=== PATIENT | male | born 1955 | race Caucasian/White ===

== ENCOUNTER 2016-10-29 22:06 | Emergency (ER) | payer MEDICARE, OTHER ==
[2016-10-29 22:32] LABS: Hematocrit 48 % (42-52); Hemoglobin 15.5 g/dl (14.0-18.0); Mean Corpuscular HGB Conc 32 g/dl (31-36); Mean Corpuscular Hemoglobin 28 pg (27-31); Mean Corpuscular Volume 87 fL (80-94); Mean Platelet Volume 9 um3 (7.4-10.4); Red Blood Count 5.55 10^6/ul (4.0-5.4); Red Cell Distribution Width 16 % (10.5-15); White Blood Count 7.6 10^3/ul (3.5-10.8)
[2016-10-29 22:49] LABS: BUN/Creatinine Ratio 18.6 (8-20); Calcium 9.4 mg/dL (8.6-10.3); EGFR African American 40.4 (>60); EGFR Non-African American 31.4 (>60); Potassium 5.9 mmol/L (3.5-5.0); Total Bilirubin 0.3 mg/dL (0.2-1.0)
[2016-10-29] MEDS ORDERED: Sodium Polystyrene ORAL.SOL* 15 GM/60 ML BTL PO ONE (23:46)
[2016-10-29] MEDS ORDERED: Albuterol/Ipratropium NEB.SOL* Albuterol 2.5 MG/Ipratropium 0.5 MG 3 ML INH ONE (23:47)
[2016-10-29] MEDS ORDERED: Dextrose 50% Syringe 50 ML* 25 GM/50 ML SYRINGE IV PUSH ONE (23:50)
[2016-10-29] MEDS ORDERED: Insulin REGULAR(*) 1 UNITS UNIT IV PUSH ONE (23:51)
[2016-10-29] MEDS ORDERED: NS 0.9% 1000 ML* 1,000 ML IV ONE (23:54)
[2016-10-30 02:32] LABS: BUN/Creatinine Ratio 18.8 (8-20); Calcium 9.1 mg/dL (8.6-10.3); EGFR African American 42.2 (>60); EGFR Non-African American 32.8 (>60); Potassium 4.9 mmol/L (3.5-5.0)
[2016-10-30] MEDS ORDERED: Dextrose 50% Syringe 50 ML* 25 GM/50 ML SYRINGE IV PUSH ONE (02:37)
[2016-10-30 02:41] VITALS: BP 125/75
--- NOTE | 2016-10-30 03:01 | ED ---
Mira Perkins Rebecca, scribed for Kiersten Atkins MD on 10/29/16 at 2250 . Complex/Multi-Sys Presentation - HPI Summary HPI Summary: Pt is a 61 y/o M who presents to ED referred from his PCP today for elevated potassium. Pt reports he has no complaints at this time and denies any palpitations. PMHx COPD. Uses O2 per Os at home (2L at night). - History Of Current Complaint Chief Complaint: EDGeneral Time Seen by Provider: 10/29/16 22:47 Hx Obtained From: Patient Onset/Duration: Still Present Location: Negative Associated Signs And Symptoms: Positive: Other - Elevated potassium. Negative: Palpitations - Allergies/Home Medications Allergies/Adverse Reactions: Allergies Allergy/AdvReac Type Severity Reaction Status Date / Time No Known Allergies Allergy Verified 10/29/16 22:09 PMH/Surg Hx/FS Hx/Imm Hx Endocrine/Hematology History: Reports: Hx Diabetes Cardiovascular History: Denies: Hx Myocardial Infarction Respiratory History: Reports: Hx Chronic Obstructive Pulmonary Disease (COPD) Infectious Disease History: No Infectious Disease History: Denies: Traveled Outside the [place] in Last 30 Days - Family History Known Family History: Positive: Diabetes - Social History Alcohol Use: Rare Substance Use Type: Reports: None Smoking Status (MU): Former Smoker Review of Systems Positive: Other - Elevated potassium Negative: Palpitations All Other Systems Reviewed And Are Negative: Yes Physical Exam - Summary Physical Exam Summary: General: Well appearing, no pain distress Skin: Warm, Skin Color Reflects Adequate Perfusion, Dry Eyes: EOMI, ISABEL ENT: Pharynx normal, TMs normal Neck: Supple, nontender Respiratory: CTA, breath sounds present, no rhonchi, no wheezes, no rales Cardiovascular: RRR, no murmur, no rub, no gallop Abdomen: Soft, nontender, Non-distended, no guarding, no rebound Bowel: Present Musculoskeletal: RAULITO, No edema Neuro: Sensory/motor intact, A&Ox3, CN intact 2-12 Psych: Affect/mood appropriate Triage Information Reviewed: Yes Vital Signs On Initial Exam: Initial Vitals Temp Pulse Resp BP Pulse Ox 97.8 F 101 20 158/98 93 10/29/16 22:09 10/29/16 22:09 10/29/16 22:09 10/29/16 22:10/29/16 22:09 Vital Signs Reviewed: Yes - Seth Coma Scale Coma Scale Total: 15 Diagnostics - Vital Signs Vital Signs Temp Pulse Resp BP Pulse Ox 10/29/16 22:09 97.8 F 101 20 158/98 93 - Laboratory Lab Results: Lab Results 10/29/16 10/29/16 Range/Units 22:24 22:24 WBC 7.6 (3.5-10.8) 10^3/ul RBC 5.55 H (4.0-5.4) 10^6/ul Hgb 15.5 (14.0-18.0) g/dl Hct 48 (42-52) % MCV 87 (80-94) fL MCH 28 (27-31) pg MCHC 32 (31-36) g/dl RDW 16 H (10.5-15) % Plt Count 176 (150-450) 10^3/ul MPV 9 (7.4-10.4) um3 Neut % (Auto) 58.9 (38-83) % Lymph % (Auto) 26.9 (25-47) % Bowman % (Auto) 10.1 H (1-9) % Eos % (Auto) 3.2 (0-6) % Baso % (Auto) 0.9 (0-2) % Absolute Neuts (auto) 4.5 (1.5-7.7) 10^3/ul Absolute Lymphs (auto) 2.0 (1.0-4.8) 10^3/ul Absolute Monos (auto) 0.8 (0-0.8) 10^3/ul Absolute Eos (auto) 0.2 (0-0.6) 10^3/ul Absolute Basos (auto) 0.1 (0-0.2) 10^3/ul Absolute Nucleated RBC 0 10^3/ul Nucleated RBC % 0 Sodium 134 (133-145) mmol/L Potassium 5.9 H (3.5-5.0) mmol/L Chloride 98 L (101-111) mmol/L Carbon Dioxide 34 H (22-32) mmol/L Anion Gap 2 (2-11) mmol/L BUN 40 H (6-24) mg/dL Creatinine 2.15 H (0.67-1.17) mg/dL Est GFR ( Amer) 40.4 (>60) Est GFR (Non-Af Amer) 31.4 (>60) BUN/Creatinine Ratio 18.6 (8-20) Glucose 257 H (70-100) mg/dL Calcium 9.4 (8.6-10.3) mg/dL Total Bilirubin 0.30 (0.2-1.0) mg/dL AST 23 (13-39) U/L ALT 18 (7-52) U/L Alkaline Phosphatase 81 (34-104) U/L Total Protein 8.0 (6.4-8.9) g/dL Albumin 4.0 (3.2-5.2) g/dL Globulin 4.0 (2-4) g/dL Albumin/Globulin Ratio 1.0 (1-3) Result Diagrams: 10/29/16 22:24 10/30/16 01:58 Lab Statement: Any lab studies that have been ordered have been reviewed, and results considered in the medical decision making process. - EKG 2215 Cardiac Rate: Tachycardia - 104 bpm EKG Rhythm: Sinus Tachycardia EKG Interpretation: No STEMI Re-Evaluation - Re-Evaluation First Eval Re-Evaluation Time: 02:39 Change: Improved Comment: Pt is doing well. His potassium has gone down, but his glucose has dipped as well. Complex Multi-Symp Course/Dx Course Of Treatment: 61 yo male sent in by pmd for elevated k over 6, K repeated here at 5.9 pt was given albuterol neb, kayexalate, d50 and 10units insulin. Just before arrival pt did take his long acting insulin but his sugar was 250 on bmp recheck is blood glucose was 61, which seems most likely reltated to his long acting insulin, he was given an amp of d50 and his was going to check his sugars when they got home and 1-2 hours after that. His repeat K was 4.9 - Diagnoses Provider Diagnoses: Hyperkalemia, Hypoglycemia Discharge - Discharge Plan Condition: Stable Disposition: HOME Patient Education Materials: Hyperkalemia (ED), Hypoglycemia in a Person with Diabetes (ED) Referrals: Janes Bradley MD [Primary Care Provider] - 3 Days The documentation as recorded by the Mira olson Rebecca accurately reflects the service I personally performed and the decisions made by me, Kiersten Atkins MD.
== END 2016-10-30 02:52 | disposition home or self-care (01) ==
LOC: ED 22:06
DX: E87.5 Hyperkalemia (principal); E11.649 Type 2 diabetes mellitus with hypoglycemia without coma; R00.0 Tachycardia, unspecified; J44.9 Chronic obstructive pulmonary disease, unspecified; Z87.891 Personal history of nicotine dependence
CPT/HCPCS: 36415; 80048; 80053; 85025; 93005; 96361; 96374; 96375; 96376; 99284; A9270-GY